=== PATIENT | male | born 1970 | race African-American/Black ===

== ENCOUNTER 2018-01-21 14:37 | Emergency (ER) | payer OTHER ==
[~2018-01-21] VITALS: Ht 190.5 cm; Wt 172.0 kg
[2018-01-21] MEDS ORDERED: MUPI15CR TP (15:22)
[2018-01-21] MEDS ORDERED: CEPH-264 PO (15:22)
--- NOTE | 2018-01-21 15:22 | PHYS DOC ---
Past History Past Medical History: No Pertinent History Smoking: Cigarettes Adult General Chief Complaint Chief Complaint: WOUND CHECK HPI HPI 47-year-old male patient with morbid obesity and chronic lower extremity color change. Patient states he had a chronic wound in left leg for 4 months and seen by his primary care physician and treated with antibiotics with improvement of the condition, but again the wound is getting larger with some leaking fluid. Patient states he has pain in his leg during activity and has appointment by wound clinic for tomorrow, but decided to come to emergency room because of his pain. Patient denies fever and chills, focal neuro deficit, history of PE and DVT, diabetes. Review of Systems Review of Systems Constitutional: Denies fever or chills [] Eyes: Denies change in visual acuity, redness, or eye pain [] HENT: Denies nasal congestion or sore throat [] Respiratory: Denies cough or shortness of breath [] Cardiovascular: No additional information not addressed in HPI [] GI: Denies abdominal pain, nausea, vomiting, bloody stools or diarrhea [] : Denies dysuria or hematuria [] Musculoskeletal: Denies back pain, reports extremity pain] Integument: Denies rash or skin lesions [] Neurologic: Denies headache, focal weakness or sensory changes [] Endocrine: Denies polyuria or polydipsia [] All other systems were reviewed and found to be within normal limits, except as documented in this note. Allergies Allergies Allergies Coded Allergies Type Severity Reaction Last Updated Verified No Known Drug Allergies 01/21/18 No Physical Exam Physical Exam Constitutional: Well developed, well nourished, no acute distress, non-toxic appearance, morbidly obese [] HENT: Normocephalic, atraumatic Eyes: PERRLA, EOMI, conjunctiva normal, no discharge. [] Neck: Normal range of motion, no tenderness, supple, no stridor. [] Cardiovascular:Heart rate regular rhythm, no murmur [] Lungs & Thorax: Bilateral breath sounds clear to auscultation [] Skin: Warm, dry, bilateral lower extremity dark color of the skin with decrease of circulation with 5 x 5 cm old wound in medial side of left leg, no sign of abscess or acute infection Back: No tenderness, no CVA tenderness. [] Extremities: No tenderness, no cyanosis, no clubbing, ROM intact, no edema. [] Neurologic: Alert and oriented X 3, normal motor function, normal sensory function, no focal deficits noted. [] Psychologic: Affect normal, judgement normal, mood normal. [] Current Patient Data Lab Results Laboratory Tests Test 01/21/18 15:00 Glucose (Fingerstick) 126 mg/dL (70-99) H EKG EKG [] Radiology/Procedures Radiology/Procedures [] Course & Med Decision Making Course & Med Decision Making Pertinent Labs reviewed. (See chart for details) Evaluation of patient in ER showed 47-year-old male patient with chronic lower extremity wound and morbid obesity. Patient has appointment with wound clinic tomorrow. Plan to give prescription of Keflex and Bactroban instructed to follow with wound clinic. [] Dragon Disclaimer Dragon Disclaimer This electronic medical record was generated, in whole or in part, using a voice recognition dictation system. Departure Departure: Impression: Primary Impression: Wound of cheek Additional Impressions: Morbid obesity Tobacco abuse Tobacco abuse counseling Disposition: HOME, SELF-CARE (At 1520) Condition: STABLE Referrals: MALKA ARROYO DO (PCP) Patient Instructions: Wound Care, [id number] Additional Instructions: Follow-up with wound clinic tomorrow as scheduled Scripts Mupirocin Calcium (BACTROBAN) 15 Gm Cream..g. 1 FADI TP TID, #30 GM Prov: NATI FLORES MD 01/21/18 Cephalexin (KEFLEX) 500 Mg Capsule 1 CAP PO TID, #30 CAP Prov: NATI FLORES MD 01/21/18 Problem Qualifiers NATI FLORES MD January 21, 2018 15:22
[2018-01-21 15:44] VITALS: BP 144/79
== END 2018-01-21 15:40 | disposition home or self-care (01) ==
LOC: ER 14:37
DX: Z48.01 Encounter for change or removal of surgical wound dressing (principal); M79.604 Pain in right leg; E66.01 Morbid (severe) obesity due to excess calories; F17.210 Nicotine dependence, cigarettes, uncomplicated; Z71.6 Tobacco abuse counseling; Z68.42 Body mass index [BMI] 45.0-49.9, adult
CPT/HCPCS: 82947; 99283

== ENCOUNTER 2020-11-03 20:33 | Emergency (ER) | payer OTHER ==
[~2020-11-03] VITALS: Ht 190.5 cm; Wt 172.0 kg
[~2020-11-03 20:33] MED LIST: CEPH-264 PO; MUPI15CR TP
[2020-11-03 20:48] VITALS: BP 121/68
[2020-11-03] MEDS ORDERED: METH4TAB2 PO (21:29)
[2020-11-03] MEDS ORDERED: CEPH500C PO (21:29)
--- NOTE | 2020-11-03 21:29 | PHYS DOC ---
Past History Past Medical History: Asthma Past Surgical History: No Surgical History Smoking: Cigarettes Alcohol Use: Occasionally Drug Use: None General Adult EDM: Chief Complaint: SKIN RASH/ABSCESS HPI: HPI: Patient is a 50-year-old male who presents with rash to left middle finger and top of left hand. Right inner, upper arm and across to his chest. Patient reports that rash is itchy and dry. Patient was seen at PCP and prescribed an antibiotic and cream with little relief. Patient has also been taking Benadryl at home with little relief. Patient states he had Covid a month ago and that is when the rash started. Review of Systems: Review of Systems: Constitutional: Denies fever or chills Eyes: Denies change in visual acuity HENT: Denies nasal congestion or sore throat Respiratory: Denies cough or shortness of breath Cardiovascular: Denies chest pain or edema GI: Denies abdominal pain, nausea, vomiting, bloody stools or diarrhea : Denies dysuria Musculoskeletal: Denies back pain or joint pain Integument: Reports rash to left middle finger, left hand, right upper arm, chest Neurologic: Denies headache, focal weakness or sensory changes Endocrine: Denies polyuria or polydipsia Lymphatic: Denies swollen glands Psychiatric: Denies depression or anxiety Allergies: Allergies: Allergies Coded Allergies Type Severity Reaction Last Updated Verified No Known Drug Allergies 01/21/18 No Physical Exam: PE: Constitutional: Well developed, well nourished, no acute distress, non-toxic appearance. [] HENT: Normocephalic, atraumatic, bilateral external ears normal, oropharynx moist, no oral exudates, nose normal. [] Eyes: PERRLA, EOMI, conjunctiva normal, no discharge. [] Neck: Normal range of motion, no tenderness, supple, no stridor. [] Cardiovascular:Heart rate regular rhythm, no murmur [] Lungs & Thorax: Bilateral breath sounds clear to auscultation [] Abdomen: Bowel sounds normal, soft, no tenderness, no masses, no pulsatile masses. [] Skin: Red mucopurulent, dry rash to left middle finger. Red, raised rash to arms and chest Back: No tenderness, no CVA tenderness. [] Extremities: No tenderness, no cyanosis, no clubbing, ROM intact, no edema. [] Neurologic: Alert and oriented X 3, normal motor function, normal sensory function, no focal deficits noted. [] Psychologic: Affect normal, judgement normal, mood normal. [] Current Patient Data: Vital Signs: Vital Signs Date Time Temp Pulse Resp B/P (MAP) Pulse Ox O2 Delivery O2 Flow Rate FiO2 11/03/20 20:48 97.9 85 16 121/68 (85) 97 Room Air EKG: EKG: [] Radiology/Procedures: Radiology/Procedures: [] Heart Score: Risk Factors: Risk Factors: DM, Current or recent (<one month) smoker, HTN, HLP, family history of CAD, obesity. Risk Scores: Score 0 - 3: 2.5% MACE over next 6 weeks - Discharge Home Score 4 - 6: 20.3% MACE over next 6 weeks - Admit for Clinical Observation Score 7 - 10: 72.7% MACE over next 6 weeks - Early Invasive Strategies Course & Med Decision Making: Course & Med Decision Making Pertinent Labs and Imaging studies reviewed. (See chart for details) []Patient is a 50-year-old male who presents with rash to left middle finger and top of left hand. Right inner, upper arm and across to his chest. Patient reports that rash is itchy and dry. Patient was seen at PCP and prescribed an antibiotic and cream with little relief. Patient has also been taking Benadryl at home with little relief. Patient states he had Covid a month ago and that is when the rash started. Patient currently taking Bactrim. Adding on cephalexin, 500 mg, p.o. 4 times daily for 7 days. Discharging patient to home. Patient to follow back up with PCP or return to emergency room with worsening symptoms. Maira Disclaimer: Maira Disclaimer: This electronic medical record was generated, in whole or in part, using a voice recognition dictation system. Departure Departure: Impression: Primary Impression: Cellulitis of skin Disposition: 01 DC HOME SELF CARE/HOMELESS Condition: GOOD Referrals: PCP,UNKNOWN (PCP) Patient Instructions: Cellulitis, [id number] Additional Instructions: You were seen in the emergency room for rash to your hands, arms and chest. I have added an antibiotic for you to take along with the Bactrim you have already been prescribed. Continue using the cream you were prescribed from her PCP as well. You will take the new antibiotic 4 times a day for 7 days. I am also prescribing you a Medrol Dosepak. These return to the emergency room with worsening symptoms or concerns or follow back up with your PCP. EMERGENCY DEPARTMENT GENERAL DISCHARGE INSTRUCTIONS Thank you for coming to [facility] (ED) today and trusting us with you care. We trust that you had a positivie experience in our Emergency Department. If you wish to speak to the department management, you may call the director at [phone]. YOUR FOLLOW UP INSTRUCTIONS ARE FOLLOWS: 1. Do you have a private Doctor? If you do not have a private doctor, please ask for a resource list of physicians or clinics that may be able to assist you with follow up care. 2. The Emergency Physician has interpreted your x-rays. The X-Ray specialist will also review them. If there is a change in the findings, you will be notified in 48 hours when at all possible. 3. A lab test or culture has been done, your results will be reviewed and you will be notified if you need a change in treatment. ADDITIONAL INSTRUCTIONS AND INFORMATION: 1. Your care today has been supervised by a physician who is specially trained in emergency care. Many problems require more than one evaluation for a complete diagnosis and treatment. We recommend that you schedule your follow up appointment as recommended to ensure complete treatment of you illness or injury. If you are unable to obtain follow up care and continue to have a problem, or if your condition worsens, we recommend that you return to the ED. 2. We are not able to safely determine your condition over the phone nor are we able to give sound medical advice over the phone. For these safety reasons, if you call for medical advice we will ask you to come to the ED for further evaluation. 3. If you have any questions regarding these discharge instructions please call the ED at [phone]. SAFETY INFORMATION: In the interest of safety, wellness, and injury prevention; we encourage you to wear your sealbelt, if you smoke; quite smoking, and we encourage family to use a protective helmet for bicycling and other sporting events that present an increased risk for head injury. IF YOUR SYMPTOMS WORSEN OR NEW SYMPTOMS DEVELOP, OR YOU HAVE CONCERNS ABOUT YOUR CONDITION; OR IF YOUR CONDITION WORSENS WHILE YOU ARE WAITING FOR YOUR FOLLOW UP APPOINTMENT; EITHER CONTACT YOUR PRIMARY CARE DOCTOR, THE PHYSICIAN WHOSE NAME AND NUMBER YOU WERE GIVEN, OR RETURN TO THE ED IMMEDIATELY. Scripts Methylprednisolone (MEDROL) 4 Mg Tab.ds.pk 1 PKG PO UD for rash, #1 PKG Prov: OLYA DE SOUZA APRN 11/03/20 Cephalexin (CEPHALEXIN) 500 Mg Capsule 1 CAP PO QID for infection for 7 Days, #28 CAP Prov: OLYA DE SOUZA APRN 11/03/20 OLYA DE SOUZA APRN Nov 03, 2020 21:29
== END 2020-11-03 21:35 | disposition home or self-care (01) ==
LOC: ER 20:33
DX: L03.012 Cellulitis of left finger (principal); J45.909 Unspecified asthma, uncomplicated; F17.210 Nicotine dependence, cigarettes, uncomplicated
CPT/HCPCS: 99283